=== PATIENT | female | born 2000 | race Caucasian/White ===

== ENCOUNTER 2022-09-09 00:12 | Emergency (ER) | payer OTHER ==
[~2022-09-09] VITALS: Ht 165.1 cm; Wt 53.5 kg
--- NOTE | 2022-09-09 00:47 | NUR ---
BIBFRIEND FROM HOME C/O DOGBITE TO R THIGH TDAP NOT UTD, PLACED ON BED COMFORTABLY, V/S CHECKED. NO SOB NOTED.
[2022-09-09] MEDS ORDERED: AMOX-430 PO (00:57)
[2022-09-09] MEDS ORDERED: AMOX/CLAVULANATE 875 MG TABLET PO ONE (01:00)
[2022-09-09] MEDS ORDERED: AMOX/CLAVULANATE 875 MG TABLET ONE (01:06)
[2022-09-09] MEDS ORDERED: TDAP [DIPH/PERTUSSIS/TET] 0.5 ML VIAL IM ONE ×2 (01:22→01:30)
--- NOTE | 2022-09-09 01:30 | NUR ---
Patient discharged to home in stable condition. Ambulatory. Written and verbal after care instructions given. Patient verbalizes understanding of instruction.
[2022-09-09 01:32] VITALS: BP 130/80
== END 2022-09-09 01:32 | disposition home or self-care (01) ==
LOC: ER 00:16
DX: S71.151A Open bite, right thigh, initial encounter (principal); Z79.899 Other long term (current) drug therapy; W54.0XXA Bitten by dog, initial encounter; Y93.89 Activity, other specified; Y92.89 Other specified places as the place of occurrence of the external cause; Y99.8 Other external cause status
CPT/HCPCS: 90715